=== PATIENT | female | born 1980 | race Caucasian/White ===

== ENCOUNTER 2020-11-03 18:16 | Emergency (ER) | payer OTHER | END 2020-11-03 20:25 | disposition home or self-care (01) | LOC: FER 18:16 | DX: S93.402A Sprain of unspecified ligament of left ankle, initial encounter (principal); W19.XXXA Unspecified fall, initial encounter | CPT/HCPCS: 73610 ==

== ENCOUNTER 2021-12-15 15:43 | Emergency (ER) | payer OTHER | END 2021-12-15 19:30 | disposition left against medical advice (07) | LOC: FER 15:43 | DX: R06.02 Shortness of breath (principal); R61 Generalized hyperhidrosis; Z53.29 Procedure and treatment not carried out because of patient's decision for other reasons | CPT/HCPCS: 93005 ==